=== PATIENT | male | born 1985 | race Caucasian/White ===

== ENCOUNTER 2019-01-23 06:24 | Emergency (ER) | payer OTHER ==
[2019-01-23] MEDS ORDERED: ASPIRIN CHEW 81 MG TABLET PO STA (06:40)
[2019-01-23] MEDS ORDERED: fentaNYL 100 MCG/2 ML VIAL IVP STA (06:40)
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
[2019-01-23 06:49] LABS: BASOPHILS % (AUTO) 0.7 %; EOSINOPHILS # (AUTO) 0.6 10^3/uL (0.0-0.7); EOSINOPHILS % (AUTO) 8.4 %; HGB - HEMOGLOBIN 15.9 g/dL (14.0-18.0); LYMPHOCYTES # (AUTO) 1.7 10^3/uL (1.5-3.5); LYMPHOCYTES % (AUTO) 25.8 %; MEAN CORPUSCULAR HEMOGLOBIN 30.3 pg (27.0-31.0); MEAN CORPUSCULAR HGB CONC 34.1 g/dL (32.0-36.0); MEAN CORPUSCULAR VOLUME 88.9 fL (80.0-94.0); MEAN PLATELET VOLUME 8.9 fL (7.4-11.4); MONOCYTES # (AUTO) 0.5 10^3/uL (0.0-1.0); MONOCYTES % (AUTO) 7.6 %; NEUTROPHILS # (AUTO) 3.8 10^3/uL (1.5-6.6); NEUTROPHILS % (AUTO) 57.5 %; PLT - PLATELET COUNT 225 10^3/uL (130-450); RED BLOOD COUNT 5.23 10^6/uL (4.70-6.10); RED CELL DISTRIBUTION WIDTH 13.1 % (12.0-15.0); WHITE BLOOD COUNT 6.7 x10^3/uL (4.8-10.8)
[2019-01-23 06:56] LABS: PT - PROTHROMBIN TIME 11.8 secs (9.9-12.6)
--- NOTE | 2019-01-23 06:59 | XRAY Report ---
Reason: cough Procedure Date: 01/23/2019 Accession Number: [id number] / [id number] Procedure: XR - Chest 2 View X-Ray CPT Code: 11626 FULL RESULT: EXAM: CHEST RADIOGRAPHY EXAM DATE: 01/23/2019 06:52 AM. CLINICAL HISTORY: Cough. COMPARISON: None. TECHNIQUE: 2 views. FINDINGS: Lungs/Pleura: No focal opacities evident. No pleural effusion. No pneumothorax. Normal volumes. Mediastinum: Heart and mediastinal contours are unremarkable. Other: None. IMPRESSION: Normal 2-view chest radiography. RADIA
[2019-01-23 07:03] LABS: PARTIAL THROMBOPLASTIN TIME 32.3 secs (24.9-33.3)
[2019-01-23 07:10] LABS: ALBUMIN 4.5 g/dL (3.2-5.5); ALBUMIN/GLOBULIN RATIO 1.4 (1.0-2.2); BILIRUBIN,TOTAL 0.7 mg/dL (0.2-1.0); CALCIUM 9.2 mg/dL (8.5-10.3); TOTAL PROTEIN 7.8 g/dL (6.7-8.2)
[2019-01-23 11:19] VITALS: BP 134/85
--- NOTE | 2019-01-23 11:29 | ED Physician Documentation ---
History of Present Illness - Stated complaint Stated Complaint: CHEST PX - Chief complaint Chief Complaint: Cardiac - History obtained from History obtained from: Patient - History of Present Illness Timing: Today - Additonal information Additional information: 33-year-old male previously well with episode of chest pain today that lasted longer than what it has previously for him. He has been having similar episodes for the past year. He has brief episodes of left upper chest wall pain. He does not have any tenderness to the pain and is not able to reproduce the symptoms by any specific maneuver. PD PAST MEDICAL HISTORY - Past Medical History Past Medical History: No Cardiovascular: Hypertension - Past Surgical History Past Surgical History: No HEENT: Other (Eye surgery as a child) - Present Medications Home Medications: Ambulatory Orders Medication Instructions Recorded Confirmed No Known Home Medications 01/23/19 01/23/19 - Allergies Allergies/Adverse Reactions: Allergies Allergy/AdvReac Type Severity Reaction Status Date / Time No Known Drug Allergies Allergy Verified 01/23/19 06:36 - Social History Does the pt smoke?: No Smoking Status: Never smoker Does the pt drink ETOH?: No Does the pt have substance abuse?: No - Immunizations Immunizations are current?: Yes - POLST Patient has POLST: No Results - Vitals Vitals: Vital Signs - 24 hr 01/23/19 01/23/19 01/23/19 06:32 06:48 07:51 Temperature 37.0 C Heart Rate 78 52 L Respiratory 16 18 15 Rate Blood Pressure 164/93 H 127/79 O2 Saturation 99 95 01/23/19 01/23/19 01/23/19 09:00 10:09 11:17 Temperature Heart Rate 57 L 52 L 56 L Respiratory 18 16 20 Rate Blood Pressure 119/80 128/80 134/85 H O2 Saturation 96 100 98 Oxygen O2 Source Room air - Labs Labs: Laboratory Tests 01/23/19 01/23/19 01/23/19 06:40 06:40 06:40 WBC 6.7 RBC 5.23 Hgb 15.9 Hct 46.5 MCV 88.9 MCH 30.3 MCHC 34.1 RDW 13.1 Plt Count 225 MPV 8.9 Neut # (Auto) 3.8 Lymph # (Auto) 1.7 Long # (Auto) 0.5 Eos # (Auto) 0.6 Baso # (Auto) 0.0 Absolute Nucleated RBC 0.01 Nucleated RBC % 0.2 PT 11.8 INR 1.0 APTT 32.3 Sodium 137 Potassium 3.6 Chloride 101 Carbon Dioxide 26 Anion Gap 10.0 BUN 17 Creatinine 1.0 Estimated GFR (MDRD) 85 L Glucose 113 H Calcium 9.2 Total Bilirubin 0.7 AST 28 ALT 30 Alkaline Phosphatase 64 Troponin I Total Protein 7.8 Albumin 4.5 Globulin 3.3 Albumin/Globulin Ratio 1.4 Lipase 52 H 01/23/19 01/23/19 06:40 09:07 WBC RBC Hgb Hct MCV MCH MCHC RDW Plt Count MPV Neut # (Auto) Lymph # (Auto) Long # (Auto) Eos # (Auto) Baso # (Auto) Absolute Nucleated RBC Nucleated RBC % PT INR APTT Sodium Potassium Chloride Carbon Dioxide Anion Gap BUN Creatinine Estimated GFR (MDRD) Glucose Calcium Total Bilirubin AST ALT Alkaline Phosphatase Troponin I < 0.04 < 0.04 Total Protein Albumin Globulin Albumin/Globulin Ratio Lipase PD MEDICAL DECISION MAKING - ED course Complexity details: considered differential, d/w patient ED course: 33-year-old male worked up for atypical chest pain by the off going night ED is turned over the patient's care to me for a second troponin his second troponin is negative. The patient is symptom-free and discharged from the emerge ncy department. Departure - Departure Disposition: 01 Home, Self Care Clinical Impression: Atypical chest pain Chest pain Qualifiers: Chest pain type: unspecified Qualified Code(s): R07.9 - Chest pain, unspecified Condition: Good Instructions: ED Chest Pain NonCardiac, ED Chest Pain Atypical Unkn Cause Follow-Up: your,doctor [Other] - Within 3 Days Comments: Please contact your primary care physician in the next 2-3 days to schedule appropriate follow-up to discuss your elevated blood pressure, as well as obtain any further work-up for your chest discomfort. Recommend use of ibuprofen/Tylenol as needed. Return to ED sooner if experience worsening symptoms or other concerns.
== END 2019-01-23 11:35 | disposition home or self-care (01) ==
LOC: ED 06:24
DX: R07.9 Chest pain, unspecified (principal); I10 Essential (primary) hypertension
CPT/HCPCS: 36415; 71046; 80053; 83690; 84484; 85025; 85610; 85730; 93005; 96374; 99284; A9270

== ENCOUNTER 2020-06-27 08:08 | Outpatient (CLI) | payer OTHER ==
--- NOTE | 2020-06-27 10:03 | MRI Report ---
PROCEDURE: Knee LT W/O INDICATIONS: LT KNEE PAIN TECHNIQUE: Noncontrast sagittal PD fast spin echo and T2 inversion recovery, sagittal 3-D spoiled GE with fat sa turation; coronal T1 spin echo and PD inversion recovery, and axial PD fast spin echo with fat satura tion through the knee. COMPARISON: None. FINDINGS: Image quality: Excellent. Menisci: The medial meniscus is intact. The posterior root attachment of the lateral meniscus is poo rly visualized and may be torn. There is no meniscal extrusion. Cruciate ligaments: There is complete tearing of the mid substance of the anterior cruciate ligament . Some of the distal anterior cruciate ligament fibers are displaced anteriorly. The posterior crucia te ligament is intact. Medial structures: Mild edema is seen surrounding the proximal medial collateral ligament, compatibl e with a grade 1 sprain. The semimembranosus tendon insertions appear intact. Visualized portions o f the pes anserinus tendons appear normal. Lateral structures: The lateral collateral ligament, long and short heads of the biceps femoris tend on appear intact. The popliteus tendon appears intact. Mild edema within the popliteus muscle and th e proximal portion of the soleus muscle are most likely secondary to a low-grade muscle strains. Ilio tibial band appears normal. Anterior structures: The quadriceps and patellar tendons appear intact. Patellar alignment is tl l. No femoral trochlear dysplasia or ventral trochlear prominence. No edema in the infrapatellar fa t pad. Bones and cartilage: Impaction trabecular bone injuries are seen in the central to anterior weightbe aring portion of the lateral femoral condyle and the far posterior portion of the lateral tibial plat eau, compatible with a pivot shift injury mechanism. Additional trabecular bone injuries are seen in the medial femoral condyle and medial tibial plateaus including a nondisplaced fracture at the semiconductor processor ior weightbearing portion of the medial tibial plateau measuring approximately 2.2 x 1.2 x 0.5 cm. No significant step-off at the articular surface is identified. Mild trabecular bone injury is seen in the inferior pole of the patella. The cartilage of the medial and lateral femorotibial compartments, as well as the patellofemoral compartment, appears normal in thickness. Joint space and soft tissues: There is a medium-sized joint effusion. There is no medial popliteal cyst. There is a small amount of nonspecific subcutaneous prepatellar edema. IMPRESSION: 1. Complete midsubstance tear of the anterior cruciate ligament. 2. Multiple trabecular bone injuries are seen throughout the knee including the medial and lateral f emoral condyles and the posterior portions of the medial and lateral tibial plateau as well as the in ferior pole of the patella. There is a superimposed nondisplaced fracture of the posterior medial tib ial plateau without step-off at the articular surface. Findings are most compatible with a pivot shif t injury mechanism. 3. Grade 1 sprain of the medial collateral ligament. 4. Possible tear of the posterior root attachment of the lateral meniscus without meniscal extrusion . The medial meniscus is intact. 5. Moderate joint effusion. Reviewed by: Seamus Valdes MD on 06/27/2020 10:01 AM PDT Approved by: Seamus Valdes MD on 06/27/2020 10:01 AM PDT Station ID: [id number]
== END 2020-06-27 08:09 | disposition home or self-care (01) ==
LOC: DI 08:08
PROVIDERS: ATTEND Student in an Organized Health Care Education/Training Program
DX: S82.145A Nondisplaced bicondylar fracture of left tibia, initial encounter for closed fracture (principal); S83.512A Sprain of anterior cruciate ligament of left knee, initial encounter; S83.412A Sprain of medial collateral ligament of left knee, initial encounter